=== PATIENT | female | born 1995 | race Caucasian/White ===

== ENCOUNTER 2022-07-26 23:03 | Inpatient (IN) ==
[2022-07-26] MEDS ORDERED: OXYTOCIN 30 UNITS/500 ML BAG IV PRN (23:57)
[2022-07-26] MEDS ORDERED: LIDOCAINE 1% LOCAL 20 ML VIAL INFIL PRN (23:57)
[2022-07-27] MEDS ORDERED: CALCIUM CARBONATE 500 MG CHEWABLE TAB PO PRN (00:10)
[2022-07-27] MEDS ORDERED: CALCIUM CARBONATE 500 MG CHEWABLE TAB ONE (00:12)
[2022-07-27 00:14] LABS: Hematocrit (blood only) 31.7 % (37.0-47.0); Hemoglobin 10.4 g/dl (12.0-16.0); Mean Corpuscular Hemoglobin 26.7 pg (25.0-34.0); Mean Corpuscular Hgb Conc 32.8 g/dL (32.0-36.0); Mean Corpuscular Volume 81.3 fL (80.0-100.0); Mean Platelet Volume 10.3 fL (9.4-12.4); Platelet Count 427 K/uL (130-400); RDW Coefficient of Variation 13.9 % (11.5-14.5); RDW Standard Deviation 40.7 fL (36.4-46.3); White Blood Count 12.64 K/ul (4.8-10.8)
[2022-07-27] MEDS: LACTATED RINGER'S 1,000 ML IV PRN ×2 (00:37→01:34)
[2022-07-27] MEDS ORDERED: SODIUM CHLORIDE 0.9% PF INJ 10 ML VIAL ONE (00:45)
[2022-07-27] MEDS ORDERED: fentaNYL citrate PF 100 MCG/2 ML VIAL ONE (00:45)
[2022-07-27] MEDS ORDERED: ePHEDrine sulfate 50 MG/ML AMP ONE (00:45)
[2022-07-27] MEDS ORDERED: LIDOCAINE 2%/EPINEPHRINE 1:200,000 20 ML PF ONE (00:46)
[2022-07-27] MEDS ORDERED: fentaNYL 2MCG/ML ROPIVACAINE 1.25MG/ML 100 ML BAG EPI ONE (00:46)
[2022-07-27] MEDS ORDERED: BUPIVACAINE 0.25% PF 30 ML VIAL ONE (00:46)
[2022-07-27] MEDS ORDERED: ONDANSETRON INJ 2 MG/ML 2 ML VIAL IV PRN (01:30)
[2022-07-27] MEDS ORDERED: diphenhydrAMINE 50 MG/ML VIAL IV PRN (01:30)
[2022-07-27] MEDS ORDERED: fentaNYL 2MCG/ML ROPIVACAINE 1.25MG/ML 100 ML BAG EPI PRN (01:30)
[2022-07-27] MEDS ORDERED: NALOXONE HCL 1 MG in SODIUM CHLORIDE 0.9% 1000ML 1,000 ML IV PRN (01:30)
[2022-07-27] MEDS ORDERED: NALOXONE HCL 0.4 MG/1 ML VIAL/CARP IV PRN (01:30)
[2022-07-27] MEDS ORDERED: ePHEDrine sulfate 50 MG/ML AMP IV PRN (01:30)
[2022-07-27] MEDS ORDERED: PROMETHAZINE HCL 6.25 MG in SODIUM CHLORIDE 0.9% 50 ML IV PRN (01:30)
[2022-07-27] MEDS ORDERED: NALBUPHINE HCL INJ 10 MG/ML AMP IV PRN (01:30)
--- NOTE | 2022-07-27 01:30 | Anesthesiology Consultation ---
Date of Service July 27, 2022 Assessment & Plan Chart Review Chart Review: Patient NOT seen in Pre Admission Testing and Acceptable Risk for Labor Epidural Consults Requested none ASA ASA2 Proposed Anesthesia Anesthesia Type: Labor Epidural Risk / Benefits Reviewed With: PT / POA / Parent / Guardian, Accepts Plan and Informed Consent Obtained History Height/Weight Height: 5 ft 4 in Weight: 71.668 kg Allergies Allergy/AdvReac Type Severity Reaction Status Date / Time No Known Allergies Allergy Verified 07/26/22 23:24 Medications Home Medications Medication Instructions Recorded Confirmed Last Taken prenat.vits,sony,tzg-souc-iqudm 1 tab PO DAILY 12/23/21 07/26/22 07/24/22 08:15 1 tab Active Medications Generic Name Dose Route Start Last Admin Trade Name Freq PRN Reason Stop Dose Admin Lactated Ringer's 1,000 mls @ 125 mls/hr 07/26/22 23:57 07/27/22 00:37 Lr IV 07/28/22 23:56 999 mls/hr .Q8H PRN Administration L&D Protocol Protocol Past Medical History Medical History Depression with anxiety Miscarriage Varicella vaccination Exercise / Class Metabolic Activity II 4-5 Yardwork/Stairs/Walk up hill Past Family History Family History Grandfather (Maternal) Colorectal cancer Grandmother (Paternal) Breast cancer Grandfather (Paternal) Thyroid cancer Denies family history of Ovarian cancer Past Surgical History Surgical History S/P wisdom tooth extraction Past Anesthesia History No Hx of Anesthesia Complications and No Family Hx of Anesthesia Complications History of PONV No Hx of PONV and No Hx of Motion Sickness Social History Smoking Status: Former smoker Hx Alcohol Use: No Hx Substance Use: No substance use type: does not use Physical Exam Vital Signs Last Vital Signs Temp 36.8 C 07/26/22 23:24 Pulse 92 H 07/27/22 01:28 Resp 18 07/27/22 01:25 BP 91/52 L 07/27/22 01:28 Pulse Ox 95 07/27/22 01:28 ENMT Mouth: no dentition abnormality Thyromental Distance: > or= 3.5 Finger Breadths Mallampati Class: II Neck normal visual inspection Respiratory normal respiratory effort Auscultation: lungs clear to auscultation bilaterally Cardiovascular Rate/Rhythm: regular rate and regular rhythm Psychiatric Orientation: alert Testing Laboratory Results 07/26/22 23:56
[2022-07-27] MEDS ORDERED: OXYTOCIN 30 UNITS/500 ML BAG IV PRN (04:15)
[2022-07-27] MEDS ORDERED: BENZOCAINE 20% AER SPR 82.5 GM CAN EXT PRN (04:15)
[2022-07-27] MEDS ORDERED: HYDROCORTISONE ACETATE 25 MG SUPP PR PRN (04:15)
[2022-07-27] MEDS ORDERED: ACETAMINOPHEN 325 MG TAB PO PRN (04:15)
[2022-07-27] MEDS ORDERED: DIPHTHERIA/TETANUS/PERTUSSIS 0.5mL SYR/VIAL (Age 7+yrs) IM ONE (04:15)
[2022-07-27] MEDS: PRENATAL VITAMIN 1 TAB PO SCH (08:11)
[2022-07-27] MEDS: DOCUSATE SODIUM 100 MG CAP PO SCH ×2 (08:11→20:41)
[2022-07-27] MEDS: FERROUS SULFATE 325 MG TAB PO SCH (08:11)
[2022-07-27] MEDS: IBUPROFEN 600 MG TAB PO PRN ×3 (08:35→17:11)
--- NOTE | 2022-07-27 08:36 | Delivery Summary ---
DATE OF SERVICE: 07/27/2022. PROCEDURE: Normal spontaneous vaginal delivery with right labial laceration repair. SURGEON: Caden Ryder MD. PREOPERATIVE DIAGNOSES: 1. Single intrauterine at 38 weeks 4 days gestational age. 2. Active labor. POSTOPERATIVE DIAGNOSES: 1. Single intrauterine at 38 weeks 4 days gestational age. 2. Active labor. 3. Status post procedure. ESTIMATED BLOOD LOSS: 100 mL. URINE OUTPUT: Not measured. COMPLICATIONS: None. FINDINGS: Viable female with weight of 6 pounds 11-1/2 ounces and Apgars of 8 and 9 at one a nd five minutes respectively. DESCRIPTION OF PROCEDURE: The patient progressed to 10 cm dilated, 100% effaced, positive 1 station, pushed over intact perineum with epidural anesthesia, delivery of viable female with weight and Apgars as noted above. The patient pushed over 2 contractions to achieve delivery. Body and angelic ulders quickly followed. was noted to be vigorous soon after delivery and a 1 minute delayed cord clamping was initiated. Cord was then double clamped and cut. remained on maternal ab domen. Cord blood was obtained. Attention was then turned to delivery of the placenta, which was de livered intact, 3-vessel cord, gentle cord traction. On inspection of perineum and vagina, cervix, t here was noted to be a small right labial laceration, which was repaired with interrupted stitch of 3 -0 Vicryl. Needle, sponge, and instrument counts were correct at the completion of the case. Both m other and stable in the immediate post-delivery period. Job ID: [id number]
--- NOTE | 2022-07-27 08:38 | Anesthesia Procedure Note ---
Date of Service July 27, 2022 Anesthesia Post Epidural Note Vital Signs Vital Signs: Temp Pulse Resp BP Pulse Ox O2 Del Method 97.7 F 84 18 103/62 97 Room Air 07/27/22 07:45 07/27/22 07:45 07/27/22 07:45 07/27/22 07:45 07/27/22 07:45 07/27/22 07:45 Pain Intensity Abdomen: Pain Intensity: 0 Notes Mental Status: alert / awake / arousable and participated in evaluation Nausea / Vomiting: adequately controlled Pain: adequately controlled Airway Patency, RR, SpO2: stable & adequate BP & HR: stable & adequate Hydration State: stable & adequate Neuraxial Anesthesia: was administered and sensory block is resolving Anesthetic Complications: no major complications apparent and Pt Satisfied with anesthetic care Epidural: Removed without complications and With tip intact
[2022-07-28] MEDS: IBUPROFEN 600 MG TAB PO PRN ×2 (03:05→07:41)
--- NOTE | 2022-07-28 06:43 | Obstetrical Progress Note ---
Date of Service July 28, 2022 Assessment & Plan (1) with history of ectopic , antepartum: Plan Shanda is a 27 y/o female who is PPD #1 following delivery at 38w4d. -Meeting all milestones -Vital signs reviewed and WNL, Hemoglobin stable -O+/GBS negative/Rubella immune -Follow up in 6 weeks for appointment -Continue routine care Admission and Anticipated Discharge Date Admission Date: July 26, 2022 Supervising Physician Co-Signing Physician Notes Resident Physician Supervision Note: I was present with Dr. Alcaraz during the history and exam. I discussed the case with the resident and agree with the findings and plan as documented in the note. Any exceptions or clarifications are listed here: stable, routine care. f/u 6 wk pp. rh pos, ri, . Documented By: Peyton Mendez MD, FACOG Subjective Shanda is a 27 y/o female who is PPD #1 following delivery at 38w4d. She reports feeling well overall this morning. Notes some abdominal cramping with breast feeding but pain well managed on analgesics. Voiding without issue . Tolerating meals overnight and able to ambulate some. Has some persistent lochia with some improvement this morning. Currently breast feeding. Review of Systems Constitutional: no fever, no chills and no sweats Respiratory: no cough, no dyspnea and no wheezing Cardiovascular: no chest pain, no palpitations and no calf pain Genitourinary: no dysuria Neurologic: no headache(s) Physical Exam Constitutional: WD/WN, vitals as above no acute distress Respiratory: no respiratory distress Auscultation: lungs clear to auscultation bilaterally; no rales, no rhonchi and no wheezes Cardiovascular: RRR, no murmur, no edema Extremities: no calf tenderness and no edema Negative Yasir's sign bilaterally. Gastrointestinal (Abdomen): Inspection/Auscultation: normal bowel sounds Genitourinary: Uterine fundus firm, palpable below the umbilicus. Results & Data Vital Signs (Past 12 Hours) Vital Signs Temp Pulse Resp BP 07/28/22 03:29 36.3 C L 68 20 94/56 L 07/28/22 00:10 36.7 C 72 16 106/64 07/27/22 19:40 36.7 C 80 20 122/58 L Resident Activity Tracking Resident Involvement: Resident Care Provided Care Provided: OB Delivery
[2022-07-28] MEDS: PRENATAL VITAMIN 1 TAB PO SCH (07:40)
[2022-07-28] MEDS: FERROUS SULFATE 325 MG TAB PO SCH (07:40)
[2022-07-28] MEDS: DOCUSATE SODIUM 100 MG CAP PO SCH (07:40)
[2022-07-28] MEDS ORDERED: bisacodyL 5 MG TABEC PO SCH (20:00)
[2022-07-29] MEDS ORDERED: bisacodyL 10 MG SUPP PR PRN
== END 2022-07-28 11:05 | disposition home or self-care (01) | DRG 807 ==
LOC: OPB 23:03 → 4S1 23:04 → 4E1 07-27 06:41 → 4E2 07-27 11:04

== ENCOUNTER 2025-03-24 06:03 | Inpatient (IN) ==
[2025-03-24] MEDS ORDERED: OXYTOCIN 30 UNITS/NSS 30 UNITS/500 ML BAG IV PRN (06:44)
[2025-03-24] MEDS ORDERED: LIDOCAINE 1% LOCAL 20 ML VIAL INFIL PRN (06:44)
--- NOTE | 2025-03-24 06:46 | History & Physical Report ---
Date of Service March 24, 2025 Assessment & Plan (1) Gestational diabetes mellitus (GDM) affecting , antepartum: (2) PROM (premature rupture of membranes): Admission and Anticipated Discharge Date Admission Date: Has not started brittnee more since admission, would recommend the addition of pitocin. fetus category one. History of Present Illness Primary Care Provider: Antonella Bhatti PA-C Patient is a who presents to labor and delivery with gross rom. Notes no real contractions at present. and Delivery Plans GDM w/28 wk glucola *Begin monthly Growth US's OB Labs: Blood Type O Positive 09/18/24 Antibody Screen NEGATIVE 09/18/24 Hgb 11.3 g/dl (12.0-16.0) L 02/09/25 Hct 34.1 % (37.0-47.0) L 02/09/25 MCV 86.3 fL (80.0-100.0) 09/18/24 Plt Count 422 K/uL (130-400) H 09/18/24 Rubella IgG Antibody Immune (Immune) 09/18/24 RPR Nonreactive (Nonreactive) 02/02/22 Treponema pallidum Ab Negative (Negative) 02/09/25 Hep Bs Antigen Negative (Negative) 09/18/24 Hep Bs Antigen NON-REACTIVE (NON-REACTIVE) 02/02/22 Hepatitis C Antibody Negative (Negative) 09/18/24 Hepatitis C Ab (EIA) NON-REACTIVE (NON-REACTIVE) 02/02/22 HIV 1&2 Ab/P24 Ag 4thGn Negative (Negative) 09/18/24 HIV (1&2) Ag & Ab Conf NON-REACTIVE (NON-REACTIVE) 02/02/22 Glucose 1 Hr 50 gm 149 mg/dl (70-130) H 11/07/24 Maternal Serum AFP 39.9 ng/mL 11/07/24 OB Optional Labs: Chlamydia trachomatis RNA Not Detected (NotDetected) 09/18/24 Neisseria gonorrhoeae RNA Not Detected (NotDetected) 09/18/24 Thyroid Stimulating Hormone (TSH) 1.3 uIU/mL (0.30-4.50) 06/14/24 Alpha Fetoprotein Triple Screen SEE NOTE 11/07/24 Labs Reviewed: cf/sma-negative--mln gbs not done Allergies Allergy/AdvReac Type Severity Reaction Status Date / Time No Known Allergies Allergy Verified 03/13/25 14:40 Home Medications Medication Instructions Recorded Confirmed Type vitamin no.56-iron 35 mg 1 cap PO DAILY #90 caps 09/18/24 03/24/25 Rx and 5 mg-folic acid 1 mg-dha capsule sertraline 25 mg tablet (Zoloft) 25 mg PO DAILY 10/16/24 03/24/25 History Patient History Medical History Miscarriage Depression with anxiety Varicella vaccination Surgical History S/P wisdom tooth extraction Family History Grandfather (Maternal) Colorectal cancer Grandmother (Paternal) Breast cancer Grandfather (Paternal) Thyroid cancer Denies family history of Ovarian cancer Social History Smoking Status: Former smoker Second Hand Exposure: No; Do You Dip or Chew Tobacco: No; Hx Alcohol Use: No Hx Substance Use: No Preferred Language: Sinhala Communication Ability: Effective Stencil Inspector Required: No Beliefs That Will Affect Care: None marital status: Single marital status details: noreen Perera (31) [phone] Current Living Situation: Family and Significant Other Current Living Situation Comment: NOREEN Haddad and 2 children, 2 dogs. current occupational status: employed current occupation: [email or web address] Other Information That Helps Us Care for You: No Feels Safe at Home: Yes Safety Concerns: Feels Safe At This Time Assistive Devices: None OB History Past Pregnancies Del. Date GA wks Lbr Lgth wt Sex Type del Anes Place Del Prov ? Comment 03/09/17 37 10 7-1 F None Other JAVAD Jo N 12/21/18 Ectopic MTX 09/18/19 Aborted-Spontaneous 07/23/21 Aborted-Spontaneous 07/27/22 38 6lb 11.5oz F Ep idural [facility] Dr. Ryder N 01/25/24 5 Aborted-Spontaneous 06/06/24 5 Aborted-Spontaneous [facility] History noncontributory Physical Exam Constitutional: WD/WN, vitals as above Gastrointestinal (Abdomen): soft, gravid, nt Psychiatric: A+Ox3, euthymic affect Genitourinary: cx per nursing on admission--/-2 toco--rare contraction efm--130s wtih mod variability, accels to 150s, no decels Results & Data Vital Signs (Past 12 Hours) Vital Signs Temp Pulse Resp BP 03/24/25 06:24 94 H 108/73 03/24/25 06:21 36.9 C 18 Coding Level of Care Code None Diagnoses Gestational diabetes mellitus (GDM) affecting , antepartum O24.419 PROM (premature rupture of membranes) O42.90
[2025-03-24 07:45] LABS: Hematocrit (blood only) 34.7 % (37.0-47.0); Hemoglobin 11.3 g/dL (12.0-16.0); Mean Corpuscular Hemoglobin 27.7 pg (25.0-34.0); Mean Corpuscular Volume 85.0 fL (80.0-100.0); Platelet Count 285 K/uL (130-400); RDW Standard Deviation 40.8 fL (36.4-46.3); Red Blood Count 4.08 M/uL (4.20-5.40); White Blood Count 9.04 K/ul (4.8-10.8)
[2025-03-24] MEDS: PENICILLIN GK 6 MU in DEXTROSE 5% 250 ML IV STA (07:51)
[2025-03-24] MEDS: LACTATED RINGER'S 1,000 ML IV PRN (07:51)
[2025-03-24] MEDS: OXYTOCIN 30 UNITS/NSS 30 UNITS/500 ML BAG IV PRN ×2 (10:56→17:32)
[2025-03-24] MEDS: PENICILLIN GK 3 MU in DEXTROSE 5% 100 ML IV PRN (12:00)
--- NOTE | 2025-03-24 12:42 | Anesthesiology Consultation ---
Date of Service March 24, 2025 Assessment & Plan Chart Review Chart Review: Acceptable Risk for Surgery and Patient NOT seen in Pre Admission Testing Consults Requested none ASA ASA2 Proposed Anesthesia Anesthesia Type: Labor Epidural and CSE History Height/Weight Height: 5 ft 4 in Weight: 78.018 kg Allergies Allergy/AdvReac Type Severity Reaction Status Date / Time No Known Allergies Allergy Verified 03/13/25 14:40 Medications Home Medications Medication Instructions Recorded Confirmed Last Taken vitamin no.56-iron 35 mg 1 cap PO DAILY #90 caps 09/18/24 03/24/25 03/23/25 and 5 mg-folic acid 1 mg-dha capsule sertraline 25 mg tablet (Zoloft) 25 mg PO DAILY 10/16/24 03/24/25 02/08/25 Active Medications Generic Name Dose Route Start Last Admin Trade Name Freq PRN Reason Stop Dose Admin Oxytocin 30 units in 500 mls @ 4 mls/hr 03/24/25 06:44 03/24/25 11:30 Pitocin 30 Units/Nss IV 03/26/25 06:43 0.24 units/hr .Q24H PRN 4 mls/hr Labor Induction/Augmentation Titration Protocol 0.24 UNITS/HR Lactated Ringer's 1,000 mls @ 125 mls/hr 03/24/25 06:44 03/24/25 07:51 Lr IV 03/26/25 06:43 125 mls/hr .Q8H PRN Administration L&D Protocol Protocol Penicillin G Potassium 3 mu/ 106 mls @ 100 mls/hr 03/24/25 09:44 03/24/25 12:00 Dextrose IV 04/03/25 09:43 100 mls/hr Q4H PRN Administration GBS(+) Until Delivery Past Medical History Medical History Miscarriage Depression with anxiety Varicella vaccination obese anemia Gestational DM Gerd Exercise / Class Metabolic Activity II 4-5 Yardwork/Stairs/Walk up hill Past Family History Family History Grandfather (Maternal) Colorectal cancer Grandmother (Paternal) Breast cancer Grandfather (Paternal) Thyroid cancer Denies family history of Ovarian cancer Past Surgical History Surgical History S/P wisdom tooth extraction Past Anesthesia History No Hx of Anesthesia Complications and No Family Hx of Anesthesia Complications History of PONV No Hx of PONV and No Hx of Motion Sickness Social History Smoking Status: Former smoker Do You Dip or Chew Tobacco: No Hx Alcohol Use: No Hx Substance Use: No substance use type: does not use Physical Exam Vital Signs Last Vital Signs Temp 36.8 C 03/24/25 07:48 Pulse 84 03/24/25 12:40 Resp 18 03/24/25 11:58 BP 103/67 03/24/25 11:58 Pulse Ox 100 03/24/25 12:40 Testing Laboratory Results 03/24/25 07:31 03/24/25 03/24/25 12:03 10:00 POC Glucose 78 83
[2025-03-24] MEDS: BUPIVACAINE 0.25% PF 30 ML VIAL ONE (13:19)
[2025-03-24] MEDS: LIDOCAINE 2%/EPINEPHRINE 1:200,000 20 ML PF ONE (13:24)
[2025-03-24] MEDS: fentANYL 2 MCG/ML BUPIVacaine 0.125%-NSS 100ML BAG ONE (13:25)
[2025-03-24] MEDS ORDERED: PROMETHAZINE 6.25 MG/50.25 ML BAG IV PRN (13:29)
[2025-03-24] MEDS ORDERED: fentANYL 2 MCG/ML BUPIVacaine 0.125%-NSS 100ML BAG EPI PRN (13:29)
[2025-03-24] MEDS ORDERED: NALOXONE HCL 0.4 MG/1 ML VIAL/CARP IV PRN (13:29)
[2025-03-24] MEDS ORDERED: ROPIVACAINE 0.5% PF 5 MG/ML 20 ML VIAL EPI PRN (13:29)
[2025-03-24] MEDS ORDERED: LIDOCAINE 2% MPF LOCAL 5 ML VIAL EPI PRN (13:29)
[2025-03-24] MEDS ORDERED: SODIUM CHLORIDE 0.9% PF INJ 10 ML VIAL EPI PRN (13:29)
[2025-03-24] MEDS ORDERED: NALBUPHINE HCL INJ 10 MG/ML AMP IV PRN (13:29)
[2025-03-24] MEDS ORDERED: diphenhydrAMINE 50 MG/ML VIAL IV PRN (13:29)
[2025-03-24] MEDS ORDERED: BUPIVACAINE 0.25% PF 30 ML VIAL EPI PRN (13:29)
[2025-03-24] MEDS ORDERED: ONDANSETRON INJ 2 MG/ML 2 ML VIAL IV PRN (13:29)
[2025-03-24] MEDS ORDERED: NALOXONE HCL 1 MG in SODIUM CHLORIDE 0.9% 1,000 ML IV PRN (13:29)
[2025-03-24] MEDS: SODIUM CHLORIDE 0.9% PF INJ 10 ML VIAL ONE (13:55)
[2025-03-24] MEDS: LIDOCAINE 2%/EPINEPHRINE 1:200,000 20 ML PF EPI STA (15:42)
[2025-03-24] MEDS: SODIUM CHLORIDE 0.9% PF INJ 10 ML VIAL EPI STA (15:42)
[2025-03-24] MEDS: BUPIVACAINE 0.25% PF 30 ML VIAL EPI STA (15:42)
--- NOTE | 2025-03-24 15:53 | Delivery Summary ---
Vaginal Delivery Summary Date of Service March 24, 2025 Vaginal Delivery Summary Pre-operative Diagnosis: at 36 weeks srom gdm Post-operative Diagnosis: same Procedure: epidural pitocin augmentation QBL: 100cc Anesthesia: epidural Procedure: The patient presented grossly ruptured. She got pitocin and epidural. She got to c/c/+1. The patient pushed for 2 contractions to deliver a viable male infant in edith position. The nose and mouth were bulb suctioned on the perineum and the rest of the infant was then delivered without difficulty. Compound presentation with left arm. The baby was vigorous. The nose and mouth were again bulb suctioned and the infant was placed in the maternal abdomen for drying and attention. Cord was clamped and cut at one minute of life. Cord blood and segment obtained. Placenta delivered spontaneous, intact with a three vessel cord. Cervix/sulci/rectum/perineum were intact. Hemostasis obtained with dilute pitocin and fundal massage. Apgars were 8/9. Mother and baby doing well at the end of the delivery. [facility] Vaginal Delivery Charge Delivery Type Details: [facility]
[2025-03-24] MEDS ORDERED: HYDROCORTISONE ACETATE 25 MG SUPP PR PRN (15:57)
[2025-03-24] MEDS: DIPHTHER/TETAN/PERTUS Vaccine (Tdap, Adol/Adult) 0.5mL IM ONE (16:37)
--- NOTE | 2025-03-24 16:44 | Anesthesia Procedure Note ---
Date of Service March 24, 2025 Anesthesia Post Epidural Note Vital Signs Vital Signs: Temp Pulse Resp BP Pulse Ox 36.9 C 94 H 20 109/60 98 03/24/25 15:06 03/24/25 16:35 03/24/25 16:30 03/24/25 16:35 03/24/25 15:45 Notes Mental Status: alert / awake / arousable Nausea / Vomiting: adequately controlled Pain: adequately controlled Airway Patency, RR, SpO2: stable & adequate BP & HR: stable & adequate Hydration State: stable & adequate Neuraxial Anesthesia: was administered and sensory block is resolving Anesthetic Complications: no major complications apparent Epidural: Removed without complications and With tip intact
[2025-03-24] MEDS: IBUPROFEN 600 MG TAB PO PRN (20:04)
[2025-03-24] MEDS: DOCUSATE SODIUM 100 MG CAP PO SCH (20:05)
[2025-03-24] MEDS: BENZOCAINE 20% SPRY 85 APPLN/85 GM CAN EXT PRN (20:55)
[2025-03-25 06:27] LABS: Hematocrit (blood only) 32.2 % (37.0-47.0); Hemoglobin 10.6 g/dL (12.0-16.0)
--- NOTE | 2025-03-25 07:32 | Obstetrical Progress Note ---
Date of Service March 25, 2025 Assessment & Plan (1) Encounter for assessment: Plan Doing well. Meeting milestones. Would like to be d/c today if baby is d/c. Instructions reviewed. Day #:: 1 Subjective Ambulation: ambulating normally Voiding: no voiding problems Passing Gas:: Yes Diet Tolerance:: regular diet Lochia:: Small Feeding Type:: breast feeding Overall feeling well. Baby doing well as well at 36 weeks. Physical Exam Constitutional WD/WN, vitals as above Cardiovascular Extremities: no calf tenderness and no edema Gastrointestinal (Abdomen) soft, nt, nd, ff/nt 2 below u. Results & Data Vital Signs (Past 12 Hours) Vital Signs Temp Pulse Resp BP Pulse Ox O2 Del Method 03/25/25 03:27 36.4 C L 82 16 108/68 97 Room Air 03/24/25 23:10 36.5 C 86 18 108/70 98 Room Air 03/24/25 20:00 36.4 C L 90 18 109/73 98 Room Air
[2025-03-25] MEDS: ACETAMINOPHEN 325 MG TAB PO PRN (07:50)
[2025-03-25] MEDS: PRENATAL VITAMIN 1 TAB PO SCH (08:27)
[2025-03-25] MEDS: SERTRALINE HCL 50 MG TABLET PO SCH (08:27)
[2025-03-26 00:59] VITALS: O2SAT 98
--- NOTE | 2025-03-26 08:32 | Obstetrical Progress Note ---
Date of Service March 26, 2025 Assessment & Plan (1) Encounter for assessment: Patient doing well. Minimal bleeding, no extremity pain she has no calf tenderness she is tolerating a regular diet she is voiding well she has no depression Instructions are reviewed and when to call she is advised to call the office for a follow-up appointment and sooner if she is having a problem Subjective Ambulation: ambulating normally Voiding: no voiding problems Passing Gas:: Yes Diet Tolerance:: regular diet Lochia:: Small Physical Exam Constitutional WD/WN, vitals as above well developed and well nourished Respiratory normal respiratory effort, lungs clear to auscultation normal respiratory effort Cardiovascular RRR, no murmur, no edema Gastrointestinal (Abdomen) normal bowel sounds, soft, nontender, no hepatosplenomegaly Results & Data Vital Signs (Past 12 Hours) Vital Signs Temp Pulse Resp BP Pulse Ox O2 Del Method 03/26/25 00:30 97.5 F L 76 16 116/70 98 Room Air
[2025-03-26 12:27] VITALS: BP 108/72; PULSE 71; RESP 16; TEMP 98.2
== END 2025-03-26 16:15 | disposition home or self-care (01) | DRG 807 ==
LOC: OPB 06:03 → 4S1 06:10 → 4E2 18:30